=== PATIENT | female | born 1980 | race Caucasian/White ===

== ENCOUNTER 2019-12-18 18:30 | Emergency (ER) | payer SELFPAY ==
[~2019-12-18] VITALS: Ht 157.5 cm; Wt 54.4 kg
[2019-12-18 18:47] VITALS: Ht 157.5 cm; Wt 54.4 kg
[2019-12-18 19:56] VITALS: BP 120/60
== END 2019-12-18 19:56 | disposition home or self-care (01) ==
LOC: ED 18:30
DX: R51 Headache (principal)